=== PATIENT | female | born 1975 | race Caucasian/White ===

== ENCOUNTER → 2018-11-26 | Day surgery (SDC) | payer BC, OTHER ==
[~2018-11-26] MED LIST: Buffered Lidocaine 1% SYRIN* 1 ML/SYRINGE INTRADERM ONE; Bupivacaine 0.5%* 50 ML MDV VIAL ONE; Dexamethasone IV* 4 MG/ML 1 ML (4 MG) IV SLOW PU ONE; Dexamethasone IV* 4 MG/ML 1 ML (4 MG) ONE; DiMENhydriNATE IV* 50 MG/ML VIAL IV PUSH PRN; EPHEDrine (Pressors)* 50 MG/ML VIAL ONE; Famotidine IV* 10 MG/ML 2 ML (20 mg) IV ONE; Famotidine IV* 10 MG/ML 2 ML (20 mg) ONE; HYDROcodone/ACETAMIN 5-325 MG* 1 TAB PO PRN; Ketorolac INJ* 30 MG/ML 1 ML VIAL IV PRN; Lactated Ringers 1000 ML Bag* 1,000 ML IV SCH; Lidocaine 2% PF * 5 ML VIAL ONE; Lidocaine 2% PF* 10 ML AMP ONE; Midazolam* 1 MG/ML 5 ML VIAL (5 MG) ONE; Naloxone* 0.4 MG/ML 1 ML VIAL IV PRN; Ondansetron INJ* 2 MG/ML VIAL ONE; Phenylephrine 40 MCG/ML SYRINGE ONE; Propofol* 10 MG/ML 20 ML BTL ONE; ceFAZolin 2 GM in NS PREMIX(*) 2 GM/100 ML BAG IVPB ONE; fentaNYL* 50 MCG/ML 2 ML VIAL (100 MCG VIAL) IV PRN; fentaNYL* 50 MCG/ML 2 ML VIAL (100 MCG VIAL) ONE; oxyCODONE/Acetamin 5/325 MG* TAB PO PRN
[2018-11-26 10:24] VITALS: BP 121/75
--- NOTE | 2018-11-26 21:18 | OP ---
DATE OF OPERATION: 11/26/18 - SDS DATE OF : 77 SURGEON: Paulo Mccormick MD [employer]ICAL [employer]LECTIONS REPRESENTATIVE: Radha Rico PA-C PRE-OP DIAGNOSIS: Left second metatarsal synovitis and pain. POST-OP DIAGNOSIS: Left second metatarsal synovitis and pain. OPERATIVE PROCEDURE: Shortening osteotomy, left second metatarsal. DESCRIPTION OF PROCEDURE: The patient was taken to the operative room, where curvilinear incision was made longitudinally just medial to the second MTP joint. Extensor tendons were retracted, we created a small dorsal capsulotomy longitudinally over the neck and second metatarsal articular surface of the second MTP joint. We used a microsagittal saw to divide the metatarsal from dorsal distal to proximal plantar and then a double cut was made exactly the same angle removing it a couple of millimeter away for bone. We then shifted the metatarsal proximally pinning this from dorsal to plantar with a 3.0-mm twist-off screw. Good fixation was verified with the C-arm and then we irrigated closing the subcu with 3-0 Monocryl, 4-0 nylon for the skin, and a compression dressing applied. [id number]/[facility] #: [id number] MTDD
== END | disposition home or self-care (01) ==
LOC: OR 05:48
PROVIDERS: ATTEND Orthopaedic Surgery
DX: M77.42 Metatarsalgia, left foot (principal); M25.572 Pain in left ankle and joints of left foot; M65.872 Other synovitis and tenosynovitis, left ankle and foot; Z87.891 Personal history of nicotine dependence
CPT/HCPCS: 76000; 81025; C1713; J0690; J1100; J2001; J2250; J2405; J2704; J3010; J3490